=== PATIENT | female | born 1945 | race Caucasian/White ===

== ENCOUNTER → 2019-08-14 | Outpatient (CLI) | payer MEDICARE, OTHER ==
--- NOTE | 2019-08-14 13:55 | Diagnostic Imaging Report ---
PROCEDURE: CT abdomen and pelvis without contrast. TECHNIQUE: Multiple contiguous axial images were obtained through the abdomen and pelvis without the use of intravenous contrast. Auto Exposure Controls were utilized during the CT exam to meet ALARA standards for radiation dose reduction. INDICATION: Left flank pain and hematuria. Patient reports having a prior left ureteral injury during colon surgery. COMPARISON: No prior studies are available for comparison. FINDINGS: The lung bases are clear. No discrete liver mass is detected. There are small stones within the gallbladder. No biliary ductal dilatation is identified. Pancreas and spleen are unremarkable. No adrenal mass is detected. No renal calculi are identified. The right ureter is unremarkable. Left ureter is somewhat difficult to trace distally, but no significant hydronephrosis is seen. There does appear to be an elongated diverticulum arising from the dome of the bladder on the left. The aorta is calcified but nonaneurysmal. Small and large bowel loops are normal caliber. No obstruction is seen. There are postsurgical changes at the rectum. There is moderate stool throughout the colon. There appears to be a right paramidline ventral hernia containing small bowel loops. No free fluid or fluid collection is identified. Uterus appears to be surgically absent. IMPRESSION: 1. Cholelithiasis. 2. Right paramidline ventral hernia containing small bowel. No bowel obstruction is seen. 3. Moderate stool throughout the colon suggestive of constipation. 4. Bladder diverticulum. No other significant abnormality is detected. Dictated by: Dictated on workstation # [id number]
== END ==
LOC: RAD FS 12:47
PROVIDERS: ATTEND Family Medicine
DX: K80.20 Calculus of gallbladder without cholecystitis without obstruction (principal); K43.9 Ventral hernia without obstruction or gangrene; N32.3 Diverticulum of bladder; R31.9 Hematuria, unspecified; Z98.890 Other specified postprocedural states; Z87.828 Personal history of other (healed) physical injury and trauma
CPT/HCPCS: 74176

== ENCOUNTER 2020-01-04 09:13 | Emergency (ER) | payer MEDICARE, OTHER ==
[~2020-01-04] VITALS: Ht 152 cm; Wt 60.0 kg
--- NOTE | 2020-01-04 09:40 | ED Lower Extremity ---
General Chief Complaint: Skin/Wound Problems Stated Complaint: LT ANKLE SWOLLEN AND RED Source: patient Exam Limitations: no limitations History of Present Illness Date Seen by Provider: Jan 04, 2020 Time Seen by Provider: 09:25 Initial Comments Patient has complained of pain to the left foot and ankle pain is predominately on the dorsum of the foot over the extensor retinaculum with soft tissue swelling there is no erythema the patient also complains of pain in the lateral malleolus. 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 She was advised to come be evaluated by her primary care provider because of concerns of this previous history of DVT. Pain/Injury Location: left foot, left ankle Method of Injury: unknown Modifying Factors: Worse With Movement Allergies and Home Medications Allergies Coded Allergies: amlodipine (Verified Allergy, Unknown, 01/04/20) Patient Home Medication List Home Medication List Reviewed: Yes (a copy of the patient's medication list from [employer] was reviewed) Review of Systems Constitutional: no symptoms reported EENTM: see HPI Respiratory: no symptoms reported Cardiovascular: no symptoms reported : No Musculoskeletal: see HPI, joint pain Past Idfotoh-Gimsmo-Xhqbap Hx Past Med/Social Hx: Reviewed Nursing Past Med/Soc Hx Patient Social History Physical Abuse: No Sexual Abuse: No Mistreated: No Fear: No Physical Exam Vital Signs Vital Signs - First Documented 01/04/20 09:20 Temp 35.3 Pulse 70 Resp 18 B/P (MAP) 182/81 (114) Pulse Ox 100 O2 Delivery Room Air Capillary Refill : Height, Weight, BMI Height: '" Weight: lbs. oz. kg; BMI Method: General Appearance: WD/WN, no apparent distress HEENT: PERRL/EOMI, normal ENT inspection Neck: non-tender, supple Cardiovascular: regular rate, rhythm, no edema, no gallop Respiratory: lungs clear, normal breath sounds Gastrointestinal: normal bowel sounds, non tender Legs: left leg other (there is no calf tenderness there is no venous dilatation there is no erythema there is no significant measurable difference between the legs.) Ankles: left ankle bone tenderness, left ankle soft tissue tenderness, left ankle swelling, left ankle other (there is soft tissue swelling on the dorsum of the left foot just lateral to the dorsalis pedis artery it is no erythema is mildly tender there is also tenderness with traction on the toes. There is soft tissue swelling of the anterior talofibular calcaneofibular ligaments the drawers test is negative dorsalis pedis posterior tibial pulses intact) Skin: normal color (there is no bruising at the point of maximal intensity of pain), warm/dry Progress/Results/Core Measures Results/Orders My Orders Orders - RACHEL IBARRA DO Ankle 3 View Left (01/04/20 09:34) Vital Signs/I&O 01/04/20 09:20 Temp 35.3 Pulse 70 Resp 18 B/P (MAP) 182/81 (114) Pulse Ox 100 O2 Delivery Room Air Progress Progress Note : Progress Note Patient presents with pain in the dorsum and dorsal lateral aspect of the left foot over the extensor retinaculum apparatus as well as the lateral malleoli or area there's been no history of injury that she is aware of certainly do not see evidence of DVT no clinical signs or symptoms plus she is already anticoagulated at more than therapeutic INR 3.1 today. Given the physical findings most likely is a ligamentous orthopedic injury there is certainly no evidence of acute DVT causing this kind of symptomatology in the foot. Given her history of rheumatoid disorders or chronic steroid use insufficiency fracture would be higher on the differential list versus misstep with ankle sprain. Panel B radiographic study immobilization support continued activity and primary care follow-up Departure Impression Primary Impression: Left ankle sprain Qualified Codes: S93.492A - Sprain of other ligament of left ankle, initial encounter Disposition: 01 HOME, SELF-CARE Condition: Unchanged Departure-Patient Inst. Decision time for Depature: 09:42 Referrals: ALLYSSA GARCIA MD (PCP/Family) Primary Care Physician First of week if not better Patient Instructions: Ankle Sprain (DC) RACHEL IBARRA DO Jan 04, 2020 09:40
--- NOTE | 2020-01-04 10:07 | Diagnostic Imaging Report ---
INDICATION: Pain and swelling FINDINGS: 3 view ankle reveals underlying bony demineralization. No appreciable fracture deformity. No widening of the mortise. The articular surface is smooth. There was no focal soft tissue swelling. IMPRESSION: No acute appearing abnormality. Dictated by: Dictated on workstation # [id number]
[2020-01-04] MEDS ORDERED: DICL100G18 TP (10:19)
[2020-01-04 10:29] VITALS: BP 182/81
== END 2020-01-04 10:22 | disposition home or self-care (01) ==
LOC: EDUNIT# 09:13 → ER FS 09:15
DX: S93.492A Sprain of other ligament of left ankle, initial encounter (principal); Z86.718 Personal history of other venous thrombosis and embolism; Z79.01 Long term (current) use of anticoagulants; X58.XXXA Exposure to other specified factors, initial encounter
CPT/HCPCS: 73610

== ENCOUNTER 2022-01-04 11:02 | Emergency (ER) | payer MEDICARE, OTHER ==
[~2022-01-04] VITALS: Ht 152 cm; Wt 60.0 kg
[~2022-01-04 11:02] MED LIST: DICL100G18 TP
--- NOTE | 2022-01-04 11:11 | ED Chest Pain ---
General Stated Complaint: CHEST PAIN History of Present Illness Date Seen by Provider: Jan 04, 2022 Time Seen by Provider: 11:07 Initial Comments 76-year-old female presents with chest pain and has been going on and off for at least 3 months if not longer. She reports that seems like if she takes her blood pressure medicine when she gets it goes away. She reports that she gets real sweaty with it. Patient reports she had an episode yesterday while her was getting a stent. She also reports that seems to be worsened by activity. That sometimes she has after activity her heart seems to be racing. Patient gets maybe some mild shortness of breath. She reports that she has not brought this up to her regular doctor been seen for previously. Patient reports may be some minimal chest pain at this time. The pain is located under her left breast. Allergies and Home Medications Allergies Coded Allergies: amlodipine (Verified Allergy, Unknown, 01/04/20) Patient Home Medication List Home Medication List Reviewed: Yes Diclofenac Sodium (Voltaren) 100 Gm Gel..gram., 1-2 GM TP TID Prescribed by: RACHEL IBARRA on 01/04/20 1021 Review of Systems Review of Systems Constitutional: No chills, No fever EENTM: No Symptoms Reported Respiratory: No Symptoms Reported Cardiovascular: Chest Pain Gastrointestinal: No Symptoms Reported Genitourinary: No Symptoms Reported Musculoskeletal: no symptoms reported Skin: see HPI Psychiatric/Neurological: No Symptoms Reported Endocrine: No Symptoms Reported Past Kunvkmy-Brazyq-Dnxyag Hx Seasonal Allergies Seasonal Allergies: No Past Medical History Bowel Surgery, Hysterectomy, Orthopedic, Tonsillectomy Respiratory: No Cardiac: Yes High Cholesterol, Hypertension Neurological: Yes (sciatica) Headaches /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 oz. 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 Norm as Tested Skin: Normal Color, Warm/Dry Progress/Results/Core Measures Results/Orders Lab Results Laboratory Tests Test 01/04/22 11:07 01/04/22 13:19 Range/Units White Blood Count 9.9 4.3-11.0 10^3/uL Red Blood Count 3.54 L 3.80-5.11 10^6/uL Hemoglobin 11.5 11.5-16.0 g/dL Hematocrit 36 35-52 % Mean Corpuscular Volume 101 H 80-99 fL Mean Corpuscular Hemoglobin 33 25-34 pg Mean Corpuscular Hemoglobin Concent 32 32-36 g/dL Red Cell Distribution Width 16.2 H 10.0-14.5 % Platelet Count 190 130-400 10^3/uL Mean Platelet Volume 9.4 9.0-12.2 fL Immature Granulocyte % (Auto) 0 % Neutrophils (%) (Auto) 71 42-75 % Lymphocytes (%) (Auto) 20 12-44 % Monocytes (%) (Auto) 7 0-12 % Eosinophils (%) (Auto) 1 0-10 % Basophils (%) (Auto) 0 0-10 % Neutrophils # (Auto) 7.1 1.8-7.8 10^3/uL Lymphocytes # (Auto) 2.0 1.0-4.0 10^3/uL Monocytes # (Auto) 0.6 0.0-1.0 10^3/uL Eosinophils # (Auto) 0.1 0.0-0.3 10^3/uL Basophils # (Auto) 0.0 0.0-0.1 10^3/uL Immature Granulocyte # (Auto) 0.0 0.0-0.1 10^3/uL Sodium Level 143 135-145 MMOL/L Potassium Level 3.4 L 3.6-5.0 MMOL/L Chloride Level 103 98-107 MMOL/L Carbon Dioxide Level 30 21-32 MMOL/L Anion Gap 10 5-14 MMOL/L Blood Urea Nitrogen 22 H 7-18 MG/DL Creatinine 1.05 0.60-1.30 MG/DL Estimat Glomerular Filtration Rate 56 BUN/Creatinine Ratio 21 Glucose Level 80 70-105 MG/DL Calcium Level 9.8 8.5-10.1 MG/DL Corrected Calcium 10.0 8.5-10.1 MG/DL Magnesium Level 1.9 1.6-2.4 MG/DL Total Bilirubin 0.3 0.1-1.0 MG/DL Aspartate Amino Transf (AST/SGOT) 17 5-34 U/L Alanine Aminotransferase (ALT/SGPT) 16 0-55 U/L Alkaline Phosphatase 55 40-136 U/L Troponin I < 0.30 < 0.30 <0.30 NG/ML Pro-B-Type Natriuretic Peptide 407.4 H <125.0 PG/ML Total Protein 5.9 L 6.4-8.2 GM/DL Albumin 3.8 3.2-4.5 GM/DL Lipase 38 8-78 U/L Prothrombin Time 21.3 H 12.2-14.7 SEC INR Comment 1.8 H 0.8-1.4 Activated Partial Thromboplast Time 31 24-35 SEC My Orders Orders - MURILLO,MERCEDES L DO Cbc With Automated Diff (01/04/22 11:11) Comprehensive Metabolic Panel (01/04/22 11:11) Lipase (01/04/22 11:11) Magnesium (01/04/22 11:11) Probnp Fs (01/04/22 11:11) Troponin I Fs (01/04/22 11:11) Chest Pa/Lat (2 View) (01/04/22 11:11) Aspirin Chewable Tablet (Baby Aspirin Ch (01/04/22 11:15) Ekg Tracing (01/04/22 12:46) Troponin I Fs (01/04/22 12:46) Protime With Inr (01/04/22 13:17) Partial Thromboplastin Time (01/04/22 13:17) Medications Given in ED Current Medications Medications Dose Ordered Sig/Vikas Route Start Time Stop Time Status Last Admin Dose Admin Aspirin 324 mg ONCE ONCE PO 01/04/22 11:15 01/04/22 11:16 DC 01/04/22 11:27 324 MG Vital Signs/I&O 01/04/22 11:07 Temp 35.6 Pulse 64 Resp 18 B/P (MAP) 141/64 (89) Pulse Ox 97 O2 Delivery Room Air Progress Progress Note : Progress Note Patient's chest pain has been going on and off with her symptoms for a couple months. Patient with negative EKG for any acute changes, negative troponin x2 negative labs. I did recommend that she follows up with her primary care provider and give them a call today to report that we recommend she gets an outpatient stress test and a cardiology follow-up. Patient is stable. She will be discharged home when she return to the ER as needed Initial ECG Impression Date: Jan 04, 2022 Initial ECG Impression Time: 11:07 Initial ECG Rate: 61 Initial ECG Rhythm: Normal Sinus Initial ECG Intervals: Normal Comment Normal sinus rhythm, questionable old septal infarct, no acute ST elevation or changes Diagnostic Imaging Diagonstic Imaging: Xray Plain Films/CT/US/NM/MRI: chest Comments Date of Exam:01/04/22 CHEST PA/LAT (2 VIEW) CLINICAL INDICATION: Patient with chest pain. EXAM: Chest x-ray PA and lateral views. COMPARISON: None. FINDINGS: Lungs/pleura: There are curvilinear opacities in both lung bases which may represent minimal atelectasis versus scarring. There is no lung infiltrate. There is no pneumothorax. There is no pleural effusion. Mediastinum: Unremarkable. Pulmonary vasculature: Unremarkable. Heart: Unremarkable. Bones/extrathoracic soft tissue: There is left curvature of the thoracolumbar spine. There are hypertrophic spurs involving the thoracic and lumbar spine. IMPRESSION: There is no radiographic evidence of acute cardiopulmonary process. There is minimal bibasilar atelectasis or scarring. Departure Impression Primary Impression: Chest pain Qualified Codes: R07.9 - Chest pain, unspecified Disposition: 01 HOME, SELF-CARE Condition: Stable Departure-Patient Inst. Referrals: ALLYSSA GARCIA MD (PCP) Primary Care Physician Patient Instructions: Chest Pain (DC) Add. Discharge Instructions: Please call your primary care provider upon discharge from the emergency room. Let them know of your emergency room visit and that we recommend that you get a stress test as soon as they are able, along with an outpatient cardiology consultation. Return to the ER with any concerns. MERCEDES MURILLO DO Jan 04, 2022 11:11
[2022-01-04] MEDS ORDERED: ASPIRIN 81 MG CHEW (CHILDREN'S ASA) PO ONE (11:15)
[2022-01-04 11:21] LABS: BASOPHILS % (AUTO) 0 % (0-10); EOSINOPHILS # (AUTO) 0.1 10^3/uL (0.0-0.3); EOSINOPHILS % (AUTO) 1 % (0-10); HEMATOCRIT 36 % (35-52); HEMOGLOBIN 11.5 g/dL (11.5-16.0); LYMPHOCYTES % (AUTO) 20 % (12-44); MEAN CORPUSCULAR HEMOGLOBIN 33 pg (25-34); MEAN CORPUSCULAR HGB CONC 32 g/dL (32-36); MEAN CORPUSCULAR VOLUME 101 fL (80-99); MEAN PLATELET VOLUME 9.4 fL (9.0-12.2); MONOCYTES # (AUTO) 0.6 10^3/uL (0.0-1.0); MONOCYTES % (AUTO) 7 % (0-12); NEUTROPHILS # (AUTO) 7.1 10^3/uL (1.8-7.8); NEUTROPHILS % (AUTO) 71 % (42-75); PLATELET COUNT 190 10^3/uL (130-400); WHITE BLOOD COUNT 9.9 10^3/uL (4.3-11.0)
--- NOTE | 2022-01-04 11:40 | Diagnostic Imaging Report ---
CLINICAL INDICATION: Patient with chest pain. EXAM: Chest x-ray PA and lateral views. COMPARISON: None. FINDINGS: Lungs/pleura: There are curvilinear opacities in both lung bases which may represent minimal atelectasis versus scarring. There is no lung infiltrate. There is no pneumothorax. There is no pleural effusion. Mediastinum: Unremarkable. Pulmonary vasculature: Unremarkable. Heart: Unremarkable. Bones/extrathoracic soft tissue: There is left curvature of the thoracolumbar spine. There are hypertrophic spurs involving the thoracic and lumbar spine. IMPRESSION: There is no radiographic evidence of acute cardiopulmonary process. There is minimal bibasilar atelectasis or scarring. Dictated by: Dictated on workstation # [id number]
[2022-01-04 11:49] LABS: ALANINE AMINOTRANSFERASE 16 U/L (0-55); ALKALINE PHOSPHATASE 55 U/L (40-136); BILIRUBIN,TOTAL 0.3 MG/DL (0.1-1.0); BUN/CREATININE RATIO 21; CALCIUM 9.8 MG/DL (8.5-10.1); CARBON DIOXIDE 30 MMOL/L (21-32); CHLORIDE 103 MMOL/L (98-107); CREATININE SERUM 1.05 MG/DL (0.60-1.30); GFR ESTIMATED 56; GLUCOSE 80 MG/DL (70-105); MAGNESIUM 1.9 MG/DL (1.6-2.4); POTASSIUM 3.4 MMOL/L (3.6-5.0); SODIUM 143 MMOL/L (135-145); TOTAL PROTEIN 5.9 GM/DL (6.4-8.2)
[2022-01-04 11:50] LABS: ALBUMIN 3.8 GM/DL (3.2-4.5); LIPASE 38 U/L (8-78)
[2022-01-04 13:39] LABS: INR 1.8 (0.8-1.4); PROTHROMBIN TIME PATIENT 21.3 SEC (12.2-14.7)
[2022-01-04 13:59] VITALS: BP 148/66
== END 2022-01-04 14:01 | disposition home or self-care (01) ==
LOC: EDUNIT# 11:02 → ER FS 11:04
DX: R07.9 Chest pain, unspecified (principal)
CPT/HCPCS: 36415; 71046; 80053; 83690; 83735; 83880; 84484; 85025; 85610; 85730; 93005